=== PATIENT | male | born 1965 | race Caucasian/White ===

== ENCOUNTER 2021-10-20 17:52 | Emergency (ER) | payer MEDICARE ==
[2021-10-20 19:42] LABS: INFLUENZA A NAA NEGATIVE (NEGATIVE)
[2021-10-20 19:49] LABS: CORONAVIRUS 2019 SARS-COV-2 POSITIVE (NEGATIVE)
[2021-10-20 20:40] LABS: BASOPHIL 0.1 % (0-2); EOSINOPHIL 0.4 % (0-5); HGB 14.7 g/dl (13.2-18.0); LYMPHOCYTE 26.2 % (15-48); MCH 30.1 pg (25.0-31.0); MCHC 34.2 g/dL (32.0-36.0); MCV 87.9 fL (78.0-100.0); MONOCYTE 6.5 % (0-12); NEUTROPHIL 66.5 % (41-80); NRBC 0; PLT 151 K/uL (150-400); RBC 4.89 M/uL (4.70-6.00); RDW 13.8 % (11.5-14.0); WBC 7.1 K/uL (4.0-10.5)
[2021-10-20] MEDS ORDERED: PREDNISONE 20MG20 MG PO (20:43)
[2021-10-20] MEDS ORDERED: AZITHROMYCIN250 MG PO (20:43)
[2021-10-20 20:57] LABS: BUN/CREAT RATIO (CALC) 13.8 RATIO; CREATININE 1.45 mg/dL (0.67-1.17); POTASSIUM 3.8 mmol/L (3.5-5.1)
== END 2021-10-20 22:45 | disposition home or self-care (01) ==
LOC: FER 17:52
PROVIDERS: Emergency Medicine; Internal Medicine
DX: U07.1 COVID-19 (principal); J44.9 Chronic obstructive pulmonary disease, unspecified; N17.9 Acute kidney failure, unspecified; E11.9 Type 2 diabetes mellitus without complications; F17.210 Nicotine dependence, cigarettes, uncomplicated; Z79.84 Long term (current) use of oral hypoglycemic drugs; Z88.5 Allergy status to narcotic agent
CPT/HCPCS: 36415; 71045; 80048; 84145; 85025; J1100; J7040; U0002